=== PATIENT | female | born 1965 | race Caucasian/White ===

== ENCOUNTER 2019-04-11 09:27 | Day surgery (SDC) | payer BC, MEDICARE ==
[2019-04-08 08:50] VITALS: BMI 25.4
[~2019-04-11 09:27] MED LIST: DEXAMETHASONE SOD PHOSPHATE 10 MG/ML 1 ML VIAL IV ONE; HYDROmorphone 0.5 MG/0.5 ML SYRINGE IVP PRN; LACTATED RINGERS 1,000 ML IV SCH; LIDOCAINE 1% (10MG/ML) FOR IV START INTRADERMA PRN; ONDANSETRON 4 MG/2 ML VIAL IVP ONE; Pre Op ABX Message 1 EACH MISC MISCELLANE ONE; SCOPOLAMINE 1.5MG/72HR PATCH TRANSDERM ONE
[2019-04-11 09:55] VITALS: RESP 16; TEMP 99
[2019-04-11] MEDS ORDERED: HEPARIN SODIUM,PORCINE 5,000 UNIT/ML 1 ML VIAL SQ ONE (10:49)
--- NOTE | 2019-04-11 10:49 | P.GSHP ---
History of Present Illness H&P Date: 04/11/19 Chief Complaint: Back lipoma This a 54-year-old female who developed a back lipoma. Lipoma was located over left shoulder. Patient presents today for excision. Past Medical History Past Medical History: Fibromyalgia, GERD/Reflux, Osteoarthritis (OA) Additional Past Medical History / Comment(s): migraines,IBS,constipation,herniated disk,sciatica, had episode of hypertenion couple yrs ago-no rx, degenerative disks, History of Any Multi-Drug Resistant Organisms: None Reported Past Surgical History: Back Surgery, Tubal Ligation Additional Past Surgical History / Comment(s): spinal fusion c3-c7, Past Anesthesia/Blood Transfusion Reactions: Motion Sickness Smoking Status: Former smoker - Past Family History Sister(s) Family Medical History: Blood Disorder Medications and Allergies Home Medications Medication Instructions Recorded Confirmed Type valACYclovir HCL [Valtrex] 500 mg PO DIRECTED PRN 08/07/15 04/11/19 History ALPRAZolam [Xanax] 0.5 mg PO QID PRN 04/08/19 04/11/19 History Clindamycin HCl 300 mg PO TID 04/08/19 04/11/19 History FLUoxetine HCL [PROzac] 20 mg PO TID 04/08/19 04/11/19 History Medroxyprogesterone Acetate 10 mg PO HS 04/08/19 04/11/19 History [Provera] Morphine Sulfate ER [Ms Contin] 30 mg PO Q12HR 04/08/19 04/11/19 History Spironolactone [Aldactone] 50 mg PO HS 04/08/19 04/11/19 History Allergies Allergy/AdvReac Type Severity Reaction Status Date / Time pollen/grass/dust mites Allergy Unknown Uncoded 04/11/19 09:45 Surgical - Exam Vital Signs Temp Pulse Resp BP Pulse Ox 99.0 F 70 16 131/73 95 04/11/19 09:48 04/11/19 09:48 04/11/19 09:48 04/11/19 09:48 04/11/19 09:48 - General well developed, well nourished, no distress - Eyes PERRL - ENT normal pinna - Neck no masses - Respiratory normal expansion - Abdomen Abdomen: soft, non tender - Musculoskeletal 10 cm back lipoma located over left shoulder Assessment and Plan Plan: 10 cm left back lipoma. We'll perform excision.
[2019-04-11] MEDS ORDERED: KETAMINE 10 MG/ML 20 ML VIAL ONE (11:09)
[2019-04-11] MEDS ORDERED: MIDAZOLAM 2 MG/2 ML VIAL ONE (11:09)
[2019-04-11] MEDS ORDERED: PROPOFOL 10 MG/ML 20 ML VIAL IV ONE (11:09)
[2019-04-11] MEDS ORDERED: fentaNYL (PF) 50 MCG/ML 2 ML AMP ONE (11:09)
[2019-04-11] MEDS ORDERED: LIDOCAINE 1% INJ 10MG/ML (20 ML MDV) ONE (11:09)
[2019-04-11] MEDS ORDERED: BUPIVACAINE (PF) 0.25% 30 ML VIAL SQ ONE (11:26)
--- NOTE | 2019-04-11 11:55 | P.OP ---
Date of Procedure: 04/11/19 Preoperative Diagnosis: Left back lipoma Postoperative Diagnosis: Left back lipoma Procedure(s) Performed: Excision of left back lipoma Anesthesia: MAC Surgeon: Meño Sivler Estimated Blood Loss (ml): 5 Pathology: other (Back lipoma) Condition: stable Disposition: PACU Description of Procedure: The patient's placed on the operating table in the lateral position. She received IV sedation. Her left back was prepped and draped usual sterile fashion. The patient had a 10 cm lipoma located in the left upper back over her shoulder blade. The skin was anesthetized 1% local Xylocaine. Using a 15 blade the skin was incised. Keila cautery was used for hemostasis. The lipoma was then dissected bluntly and sharply and use of electrocautery. The lipoma was sent to pathology. Lipoma measured approximately 12 x 12 x 4 cm. The wound was incised. Skin was closed with interrupted 3-0 Monocryl suture. Dermabond was applied. Patient top she will was sent to recovery room stable condition.
[2019-04-11 12:46] VITALS: BP 100/70; PULSE 60
== END 2019-04-11 13:06 | disposition home or self-care (01) ==
LOC: OR 09:27
PROVIDERS: ATTEND Surgery
DX: D17.1 Benign lipomatous neoplasm of skin and subcutaneous tissue of trunk (principal); Z91.09 Other allergy status, other than to drugs and biological substances; M79.7 Fibromyalgia; Z79.899 Other long term (current) drug therapy; K21.9 Gastro-esophageal reflux disease without esophagitis; M19.90 Unspecified osteoarthritis, unspecified site; K58.1 Irritable bowel syndrome with constipation; I10 Essential (primary) hypertension; Z98.51 Tubal ligation status; Z98.1 Arthrodesis status; Z87.891 Personal history of nicotine dependence; Z82.49 Family history of ischemic heart disease and other diseases of the circulatory system
CPT/HCPCS: 81025; 88304; 21931; J2250; J1644; J1100; J0690; J2405; J2001; J3010; J2704

== ENCOUNTER → 2019-08-01 | Day surgery (SDC) | payer BC, MEDICARE ==
[2019-07-29 11:53] VITALS: BMI 25.2
[~2019-08-01] MED LIST changes: +ACETAMINOPHEN TAB 500 MG TAB PO ONE; +BUPIVACAIN-EPI 0.25%-1:200,000 30 ML VIAL SQ ONE; +HEPARIN SODIUM,PORCINE 5,000 UNIT/ML 1 ML VIAL SQ ONE; -HYDROmorphone 0.5 MG/0.5 ML SYRINGE IVP PRN; +LACTATED RINGERS 1,000 ML IV ONE; -LACTATED RINGERS 1,000 ML IV SCH; -LIDOCAINE 1% (10MG/ML) FOR IV START INTRADERMA PRN; +LIDOCAINE 1% INJ 10MG/ML (20 ML MDV) ONE; +MIDAZOLAM 2 MG/2 ML VIAL IV ONE; +MIDAZOLAM 2 MG/2 ML VIAL ONE; +PROPOFOL 10 MG/ML 20 ML VIAL IV ONE; -SCOPOLAMINE 1.5MG/72HR PATCH TRANSDERM ONE; +ceFAZolin 1,000 MG VIAL IVPB ONE; +fentaNYL (PF) 50 MCG/ML 2 ML AMP ONE
--- NOTE | 2019-08-01 12:47 | P.GSHP ---
History of Present Illness H&P Date: 08/01/19 Chief Complaint: Right shoulder lipoma This a 54-year-old female who presents today for excision of right shoulder lipoma. Patient has of a 5 cm lipoma located just below the right clavicle. Past Medical History Past Medical History: Fibromyalgia, GERD/Reflux, Osteoarthritis (OA) Additional Past Medical History / Comment(s): migraines,IBS,constipation,herniated disk,sciatica, had episode of hypertension couple yrs ago-no rx, degenerative disks, History of Any Multi-Drug Resistant Organisms: None Reported Past Surgical History: Back Surgery, Tubal Ligation Additional Past Surgical History / Comment(s): spinal discectomy & fusion c3-c7, lipoma removed from left back Past Anesthesia/Blood Transfusion Reactions: Motion Sickness Smoking Status: Current every day smoker - Past Family History Sister(s) Family Medical History: Blood Disorder Medications and Allergies Home Medications Medication Instructions Recorded Confirmed Type valACYclovir HCL [Valtrex] 500 mg PO DIRECTED PRN 08/07/15 07/29/19 History ALPRAZolam [Xanax] 0.5 mg PO QID PRN 04/08/19 07/29/19 History FLUoxetine HCL [PROzac] 20 mg PO TID 04/08/19 07/29/19 History Morphine Sulfate ER [Ms Contin] 30 mg PO Q12HR 04/08/19 07/29/19 History Spironolactone [Aldactone] 50 mg PO HS 04/08/19 07/29/19 History Estrogen,Con/M-Progest Acet 1 each PO DAILY 07/29/19 07/29/19 History [Prempro 0.625-2.5 mg Tablet] Allergies Allergy/AdvReac Type Severity Reaction Status Date / Time pollen/grass/dust mites Allergy Unknown Uncoded 08/01/19 09:28 Surgical - Exam Vital Signs Temp Pulse Resp BP Pulse Ox 97.1 F L 71 16 134/74 95 08/01/19 09:36 08/01/19 09:36 08/01/19 09:36 08/01/19 09:36 08/01/19 09:36 - General well developed, well nourished, no distress - Eyes PERRL - ENT normal pinna, normal nares - Neck no masses - Cardiovascular Rhythm: regular - Abdomen Abdomen: soft, non tender Assessment and Plan Plan: 5 cm right shoulder lipoma. We'll perform excision.
[2019-08-01 13:40] VITALS: TEMP 97
[2019-08-01 14:44] VITALS: BP 108/54; PULSE 62; RESP 18
--- NOTE | 2019-08-08 09:01 | P.OP ---
Date of Procedure: 08/01/19 Preoperative Diagnosis: Right shoulder lipoma Postoperative Diagnosis: Right shoulder lipoma Procedure(s) Performed: Excision of right shoulder lipoma Anesthesia: MAC Surgeon: Meño Silver Estimated Blood Loss (ml): 10 Pathology: other (Lipoma) Condition: stable Disposition: PACU Description of Procedure: The patient's placed on the operative table in the supine position. She received IV sedation her right shoulder was prepped and draped usual sterile fashion. The patient had a lipoma located just below the clavicle. A skin incision was made over the lipoma after adequate anesthesia. And then using cautery and sharp dissection the lipoma was excised. Lipoma measured prostate 5 cm in diameter. The Bovie was used for hemostasis hemostasis. Skin was closed interrupted 3-0 Monocryl suture. Dermabond was applied. Patient top she will was sent to recovery room stable condition.
== END ==
LOC: OR 08:56
PROVIDERS: ATTEND Surgery
DX: D17.21 Benign lipomatous neoplasm of skin and subcutaneous tissue of right arm (principal); M79.7 Fibromyalgia; K21.9 Gastro-esophageal reflux disease without esophagitis; M19.90 Unspecified osteoarthritis, unspecified site; G43.909 Migraine, unspecified, not intractable, without status migrainosus; K58.9 Irritable bowel syndrome, unspecified; I10 Essential (primary) hypertension; M54.5 Low back pain; F17.210 Nicotine dependence, cigarettes, uncomplicated; Z87.19 Personal history of other diseases of the digestive system; Z87.39 Personal history of other diseases of the musculoskeletal system and connective tissue; Z98.890 Other specified postprocedural states; Z98.51 Tubal ligation status; Z98.1 Arthrodesis status; Z87.2 Personal history of diseases of the skin and subcutaneous tissue; Z87.898 Personal history of other specified conditions; Z79.899 Other long term (current) drug therapy; Z79.891 Long term (current) use of opiate analgesic; Z79.890 Hormone replacement therapy; Z91.09 Other allergy status, other than to drugs and biological substances; Z83.2 Family history of diseases of the blood and blood-forming organs and certain disorders involving the immune mechanism
CPT/HCPCS: 88304; 11406; J2250; J1644; J1100; J2405; J0690; J2001; J3010; J2704

== ENCOUNTER 2019-09-29 07:57 | Day surgery (SDC) | payer BC, MEDICARE ==
[2019-09-26 14:40] VITALS: BMI 25.2
[~2019-09-29 07:57] MED LIST changes: -ACETAMINOPHEN TAB 500 MG TAB PO ONE; -BUPIVACAIN-EPI 0.25%-1:200,000 30 ML VIAL SQ ONE; -DEXAMETHASONE SOD PHOSPHATE 10 MG/ML 1 ML VIAL IV ONE; -HEPARIN SODIUM,PORCINE 5,000 UNIT/ML 1 ML VIAL SQ ONE; -LACTATED RINGERS 1,000 ML IV ONE; +LACTATED RINGERS 1,000 ML IV SCH; -LIDOCAINE 1% INJ 10MG/ML (20 ML MDV) ONE; -MIDAZOLAM 2 MG/2 ML VIAL IV ONE; -MIDAZOLAM 2 MG/2 ML VIAL ONE; -ONDANSETRON 4 MG/2 ML VIAL IVP ONE; -PROPOFOL 10 MG/ML 20 ML VIAL IV ONE; -Pre Op ABX Message 1 EACH MISC MISCELLANE ONE; -ceFAZolin 1,000 MG VIAL IVPB ONE; -fentaNYL (PF) 50 MCG/ML 2 ML AMP ONE
[2019-09-29] MEDS ORDERED: LIDOCAINE 1% INJ 10MG/ML (20 ML MDV) ONE (08:37)
[2019-09-29] MEDS ORDERED: PROPOFOL 10 MG/ML 20 ML VIAL IV ONE (08:37)
--- NOTE | 2019-09-29 08:39 | P.GSHP ---
History of Present Illness H&P Date: 09/29/19 Chief Complaint: GERD This a 54-year-old female with a safer EGD. He's had issues with GERD. Past Medical History Past Medical History: Fibromyalgia, GERD/Reflux, Hypertension, Musculoskeletal Disorder, Osteoarthritis (OA) Additional Past Medical History / Comment(s): Migraines, IBS, constipation, herniated disc, sciatica, had episode of hypertension couple yrs ago-no rx, degenerative discs. History of Any Multi-Drug Resistant Organisms: None Reported Past Surgical History: Back Surgery, Tubal Ligation Additional Past Surgical History / Comment(s): Spinal discectomy & fusion C3-C7, lipoma removed from left back and collar bone. Past Anesthesia/Blood Transfusion Reactions: Motion Sickness Past Psychological History: Anxiety, Depression, Panic Disorder Smoking Status: Current every day smoker Past Alcohol Use History: Occasional Additional Past Alcohol Use History / Comment(s): smokes 3-5 cigarettes daily, started smoking age 16, has quit before. Past Drug Use History: None Reported - Past Family History Sister(s) Family Medical History: Blood Disorder Medications and Allergies Home Medications Medication Instructions Recorded Confirmed Type valACYclovir HCL [Valtrex] 500 mg PO DIRECTED PRN 08/07/15 09/26/19 History ALPRAZolam [Xanax] 0.5 mg PO QID PRN 04/08/19 09/26/19 History FLUoxetine HCL [PROzac] 20 mg PO TID 04/08/19 09/26/19 History Morphine Sulfate ER [Ms Contin] 30 mg PO TID 04/08/19 09/26/19 History Spironolactone [Aldactone] 50 mg PO HS 04/08/19 09/26/19 History Estrogen,Con/M-Progest Acet 1 each PO DAILY 07/29/19 09/26/19 History [Prempro 0.625-2.5 mg Tablet] Allergies Allergy/AdvReac Type Severity Reaction Status Date / Time pollen/grass/dust mites Allergy Unknown Uncoded 09/26/19 14:41 Surgical - Exam - General well developed, well nourished, no distress - Eyes PERRL - ENT normal pinna - Neck no masses - Respiratory normal expansion - Cardiovascular Rhythm: regular - Abdomen Abdomen: soft, non tender Assessment and Plan Assessment: GERD. We'll perform EGD
--- NOTE | 2019-09-29 08:48 | P.OP ---
Date of Procedure: 09/29/19 Preoperative Diagnosis: GERD Postoperative Diagnosis: Antral gastritis No significant hiatal hernia Procedure(s) Performed: EGD Anesthesia: MAC Surgeon: Meño Silver Pathology: other (Antrum, esophagus) Condition: stable Disposition: PACU Description of Procedure: The patient's placed on the endoscopy table in the lateral position. She received IV sedation. The gastroscope placed oropharynx and passed into the esophagus into the stomach. Scope was then placed through the pylorus. The first and second portion of the duodenum appeared normal. Scope was then brought back the antrum this. Mildly inflamed. The scope was then retroflexed and the remainder the stomach appeared normal. There was no significant hiatal hernia. The GE junction was at 40 cm. The distal esophagus appeared minimally inflamed. A biopsies performed. The proximal esophagus appeared normal. Scope was withdrawn for patient. Due to the patient's minimal endoscopic findings a HIDA scan was ordered.
[2019-09-29 09:14] VITALS: PULSE 74; RESP 18
[2019-09-29 09:15] VITALS: BP 123/75
--- NOTE | 2019-09-29 19:21 | NM ---
EXAMINATION TYPE: NM hepatobiliary w CCK DATE OF EXAM: 09/29/2019 COMPARISON: NONE HISTORY: Abdominal pain TECHNIQUE: After the intravenous administration of 4.8 mCi Tc 99m Mebrofenin hepatobiliary scintigrap hy is performed. Immediate images post injection. FINDINGS: There is satisfactory initial accumulation of tracer by the liver. The gallbladder is visualized wit hin 15 minutes. The small bowel activity is noted within 15 minutes. At one hour CCK was administer ed, patient was injected with 1.4 mcg of Kinevac, and gallbladder ejection fraction is calculated at 77 %, in the normal range. Therefore there is no scintigraphic evidence of cystic or common bile aruna t obstruction to suggest acute cholecystitis or gallbladder dyskinesia. No focal liver defect is seen. IMPRESSION: Normal hepatobiliary scan.
== END 2019-09-29 09:27 | disposition home or self-care (01) ==
LOC: ORWHC2ENDO 07:57
PROVIDERS: ATTEND Surgery
DX: K21.0 Gastro-esophageal reflux disease with esophagitis (principal); K31.9 Disease of stomach and duodenum, unspecified; M79.7 Fibromyalgia; M19.90 Unspecified osteoarthritis, unspecified site; G43.909 Migraine, unspecified, not intractable, without status migrainosus; K58.9 Irritable bowel syndrome, unspecified; K59.00 Constipation, unspecified; M54.30 Sciatica, unspecified side; Z98.51 Tubal ligation status; Z98.1 Arthrodesis status; Z98.890 Other specified postprocedural states; F32.9 Major depressive disorder, single episode, unspecified; F41.0 Panic disorder [episodic paroxysmal anxiety]; F17.210 Nicotine dependence, cigarettes, uncomplicated; Z83.2 Family history of diseases of the blood and blood-forming organs and certain disorders involving the immune mechanism; Z79.890 Hormone replacement therapy; Z79.891 Long term (current) use of opiate analgesic; Z79.899 Other long term (current) drug therapy; Z79.3 Long term (current) use of hormonal contraceptives; Z91.048 Other nonmedicinal substance allergy status; F41.1 Generalized anxiety disorder; Z82.5 Family history of asthma and other chronic lower respiratory diseases; Z82.61 Family history of arthritis; Z81.8 Family history of other mental and behavioral disorders; Z83.49 Family history of other endocrine, nutritional and metabolic diseases; Z82.49 Family history of ischemic heart disease and other diseases of the circulatory system
CPT/HCPCS: 78227; 43239; A9537; J2805; J2001; J2704; 88305

== ENCOUNTER → 2019-10-28 | Day surgery (SDC) | payer BC, MEDICARE ==
[2019-10-25 11:49] VITALS: BMI 27.1
[~2019-10-28] MED LIST changes: +ACETAMINOPHEN TAB 500 MG TAB PO ONE; +DEXAMETHASONE SOD PHOSPHATE 10 MG/ML 1 ML VIAL IV ONE; +GLYCOPYRROLATE 0.2 MG/ML 2 ML VIAL ONE; +HEPARIN SODIUM,PORCINE 5,000 UNIT/ML 1 ML VIAL SQ ONE; +HYDROcodone/APAP 5-325MG 1 EACH TAB ONE; +HYDROmorphone 0.5 MG/0.5 ML SYRINGE IVP PRN; +KETOROLAC 15 MG/ML 1 ML VIAL ONE; +LIDOCAINE 1% (10MG/ML) FOR IV START INTRADERMA ONE; +LIDOCAINE 1% INJ 10MG/ML (20 ML MDV) ONE; +LIDOCAINE 1%-EPI 1:100,000 20 ML VIAL SQ ONE; +MIDAZOLAM 2 MG/2 ML VIAL IV PRN; +MIDAZOLAM 2 MG/2 ML VIAL ONE; +NEOSTIGMINE 1 MG/ML 10 ML VIAL ONE; +ONDANSETRON 4 MG/2 ML VIAL ONE; +PROPOFOL 10 MG/ML 20 ML VIAL IV ONE; +ROCURONIUM BROMIDE 10 MG/ML 5 ML VIAL IV ONE; +SCOPOLAMINE 1.5MG/72HR PATCH TRANSDERM ONE; +SUCCINYLCHOLINE CHLORIDE 100 MG/5 ML SYR IV ONE; +fentaNYL (PF) 50 MCG/ML 2 ML AMP ONE
--- NOTE | 2019-10-28 08:45 | P.GSHP ---
History of Present Illness H&P Date: 10/28/19 Chief Complaint: Right upper quadrant pain This is a 54-year-old female presents today for laparoscopic cholecystectomy. Patient with right upper quadrant pain. Patient describes pain when eating greasy and fried foods. She also has complaints of nausea. Patient had a re cent HIDA scan which shows elevated ejection fraction consistent with chronic cholecystitis. Past Medical History Past Medical History: Fibromyalgia, GERD/Reflux, Hypertension, Musculoskeletal Disorder, Osteoarthritis (OA) Additional Past Medical History / Comment(s): Migraines, IBS, constipation, herniated disc, sciatica, had episode of hypertension couple yrs ago-no rx, degenerative discs. History of Any Multi-Drug Resistant Organisms: None Reported Past Surgical History: Back Surgery, Tubal Ligation Additional Past Surgical History / Comment(s): Spinal discectomy & fusion C3-C7, lipoma removed from left back and collar bone. GALLBLADDER DISORDER Past Anesthesia/Blood Transfusion Reactions: Motion Sickness Smoking Status: Current every day smoker - Past Family History Sister(s) Family Medical History: Blood Disorder Medications and Allergies Home Medications Medication Instructions Recorded Confirmed Type valACYclovir HCL [Valtrex] 500 mg PO DIRECTED PRN 08/07/15 10/25/19 History ALPRAZolam [Xanax] 0.5 mg PO QID PRN 04/08/19 10/25/19 History FLUoxetine HCL [PROzac] 20 mg PO TID 04/08/19 10/25/19 History Morphine Sulfate ER [Ms Contin] 30 mg PO TID 04/08/19 10/25/19 History Spironolactone [Aldactone] 50 mg PO HS 04/08/19 10/25/19 History Medroxyprogesterone Acetate 10 mg PO DAILY 10/25/19 10/25/19 History [Provera] Ondansetron [Zofran] 4 mg PO Q8HR PRN 10/25/19 10/25/19 History Allergies Allergy/AdvReac Type Severity Reaction Status Date / Time pollen/grass/dust mites Allergy Unknown Uncoded 10/25/19 11:35 Surgical - Exam - General well developed, well nourished, no distress - Eyes PERRL - ENT normal pinna - Neck no masses - Respiratory normal expansion - Cardiovascular Rhythm: regular - Abdomen Abdomen: soft, non tender Assessment and Plan Plan: Right quadrant pain Chronic low sized We'll perform laparoscopic cholecystectomy.
[2019-10-28 08:52] VITALS: RESP 16
[2019-10-28] MEDS: ONDANSETRON 4 MG/2 ML VIAL IVP ONE ×2 (08:58→11:30)
--- NOTE | 2019-10-28 10:29 | P.OP ---
Date of Procedure: 10/28/19 Preoperative Diagnosis: Cholecystitis Postoperative Diagnosis: Cholecystitis Procedure(s) Performed: Laparoscopic cholecystectomy Anesthesia: CAIN Surgeon: Meño Silver Estimated Blood Loss (ml): 5 Pathology: other (Gallbladder) Condition: stable Disposition: PACU Description of Procedure: The patient was placed on the operating table. The patient received a general endotracheal tube anesthesia. The patients abdomen was prepped and draped in the usual sterile fashion. Through an infraumbilical stab incision, the fascia of the anterior abdominal wall was grasped with a pair of Kochers and then the Veress needle was placed in the peritoneal cavity. Position of the Veress needle was confirmed with positive drop test. The abdomen was then insufflated. After adequate insufflation, the 10 mm trocar was placed in the peritoneal cavity. Following this the laparoscope was placed in the peritoneal cavity. The patient was placed in the head-up, right side up position and then a 5 mm trocar was placed in the right lateral and right subcostal position under direct visualization. A 8 mm trocar was placed in the epigastric position. The gallbladder was grasped in the fundus and infundibulum. Traction on the gallbladder was placed in the lateral and the cephalad positions. The triangle of Calot was visualized.. The cystic duct was bluntly dissected until the union of the cystic duct and common bile duct was seen. A critical view of safety was achieved. The cystic duct was then divided and sealed with the Harmonic scissors. A PDS Endoloop was then placed throughout the cystic duct stump. The cystic artery divided and sealed with the Harmonic scissors. The gallbladder was then removed from the liver bed using Harmonic scissors. The gallbladder was then extracted through the epigastric port site. Operative field was checked for any bleeding spots and Harmonic scissors was used to coagulate the liver bed. The abdomen was irrigated. The trocars were removed. The skin was closed using interrupted 3-0 Vicryl suture. Dermabond dressing were applied. The patient tolerated the procedure well.
[2019-10-28 10:41] VITALS: TEMP 98.2
[2019-10-28 11:47] VITALS: BP 100/59; PULSE 56
== END ==
LOC: OR 08:24
PROVIDERS: ATTEND Surgery
DX: K81.1 Chronic cholecystitis (principal); K82.8 Other specified diseases of gallbladder; I10 Essential (primary) hypertension; M79.7 Fibromyalgia; G43.909 Migraine, unspecified, not intractable, without status migrainosus; K58.9 Irritable bowel syndrome, unspecified; K21.9 Gastro-esophageal reflux disease without esophagitis; F17.210 Nicotine dependence, cigarettes, uncomplicated; M19.90 Unspecified osteoarthritis, unspecified site; Z79.891 Long term (current) use of opiate analgesic; Z79.899 Other long term (current) drug therapy; Z98.51 Tubal ligation status; Z98.1 Arthrodesis status; Z98.890 Other specified postprocedural states; Z82.49 Family history of ischemic heart disease and other diseases of the circulatory system; Z91.09 Other allergy status, other than to drugs and biological substances
CPT/HCPCS: 88304; 47562; J2250; J1644; J1100; J2710; J0690; J2405; J2001; J3010; J1885; J0330; J2704

== ENCOUNTER → 2021-03-29 | Outpatient (CLI) | payer BC, MEDICARE ==
--- NOTE | 2021-03-29 12:06 | FL ---
ESOPHOGRAM. HISTORY: Dysphagia Esophagram was performed per the air contrast technique. The patient swallowed barium and effervesce nt crystals without difficulty or delay. Esophageal peristalsis and motility appear to be within normal limits. There is no evidence for filling defect, mass or diverticulum. No hiatal hernia seen. Subsequently single contrast cervical esophagram was performed which fails demonstrate evidence for a spiration penetration or mass. IMPRESSION: Unremarkable study.
== END | disposition home or self-care (01) ==
LOC: RADUSWWP 11:03
PROVIDERS: ATTEND Surgery
DX: R13.10 Dysphagia, unspecified (principal)
CPT/HCPCS: 74220

== ENCOUNTER → 2021-04-02 | Outpatient (CLI) | payer BC, MEDICARE ==
[2021-04-03 01:51] LABS: Basophils # (A) 0.07 X 10*3/uL (0.00-0.10); Basophils % (A) 0.7 %; HCT 46.8 % (37.2-46.3); HGB 14.7 g/dL (12.0-15.0); Immature Grans, Automated 0.4 %; Lymphocytes # (A) 3.79 X 10*3/uL (0.90-5.00); Lymphocytes % (A) 36.3 %; MCH 32.3 pg (27.0-32.0); MCHC 31.4 g/dL (32.0-37.0); MCV 102.9 fL (80.0-97.0); Mean Platelet Volume 11.7 fL (9.5-12.2); Monocytes # (A) 0.79 X 10*3/uL (0.20-1.00); Monocytes % (A) 7.6 %; NRBC Per 100 WBC 0 /100 WBCS (0.0-0.0); Neutrophils # (A) 5.66 X 10*3/uL (1.80-7.70); Platelet Count 315 X 10*3/uL (140-440); RBC 4.55 X 10*6/uL (4.10-5.20); RDW 13.5 % (11.5-14.5); WBC 10.45 X 10*3/uL (4.50-10.00)
== END | disposition home or self-care (01) ==
LOC: LABPAT 14:08
PROVIDERS: ATTEND Surgery
DX: Z01.812 Encounter for preprocedural laboratory examination (principal); K21.00 Gastro-esophageal reflux disease with esophagitis, without bleeding
CPT/HCPCS: 36415; 85025; 93005

== ENCOUNTER 2021-04-08 07:55 | Inpatient (IN) | payer BC, MEDICARE ==
[~2021-04-08 07:55] MED LIST changes: -ACETAMINOPHEN TAB 500 MG TAB PO ONE; +ACETAMINOPHEN TAB 500 MG TAB PO PRN; -DEXAMETHASONE SOD PHOSPHATE 10 MG/ML 1 ML VIAL IV ONE; +DEXAMETHASONE SOD PHOSPHATE 4 MG/ML 1 ML VIAL IV ONE; -GLYCOPYRROLATE 0.2 MG/ML 2 ML VIAL ONE; -HEPARIN SODIUM,PORCINE 5,000 UNIT/ML 1 ML VIAL SQ ONE; +HEPARIN SODIUM,PORCINE/PF 5,000 UNIT/0.5 ML SYRINGE SQ PRN; -HYDROcodone/APAP 5-325MG 1 EACH TAB ONE; -HYDROmorphone 0.5 MG/0.5 ML SYRINGE IVP PRN; -KETOROLAC 15 MG/ML 1 ML VIAL ONE; -LACTATED RINGERS 1,000 ML IV SCH; -LIDOCAINE 1% (10MG/ML) FOR IV START INTRADERMA ONE; +LIDOCAINE 1% (10MG/ML) FOR IV START INTRADERMA PRN; -LIDOCAINE 1% INJ 10MG/ML (20 ML MDV) ONE; -LIDOCAINE 1%-EPI 1:100,000 20 ML VIAL SQ ONE; -MIDAZOLAM 2 MG/2 ML VIAL ONE; -NEOSTIGMINE 1 MG/ML 10 ML VIAL ONE; +ONDANSETRON 4 MG/2 ML VIAL IVP ONE; -ONDANSETRON 4 MG/2 ML VIAL ONE; -PROPOFOL 10 MG/ML 20 ML VIAL IV ONE; -ROCURONIUM BROMIDE 10 MG/ML 5 ML VIAL IV ONE; -SCOPOLAMINE 1.5MG/72HR PATCH TRANSDERM ONE; -SUCCINYLCHOLINE CHLORIDE 100 MG/5 ML SYR IV ONE; -fentaNYL (PF) 50 MCG/ML 2 ML AMP ONE
[2021-04-08] MEDS ORDERED: ACETAMINOPHEN TAB 500 MG TAB ONE (08:38)
[2021-04-08] MEDS ORDERED: SCOPOLAMINE 1.5MG/72HR PATCH TRANSDERM ONE (08:43)
[2021-04-08] MEDS: LACTATED RINGERS 1,000 ML IV SCH ×2 (08:47→23:34)
[2021-04-08 08:56] LABS: ALT 15 U/L (4-34); AST 33 U/L (14-36); African American GFR (CKD) >90 (>60 ml/min/1.73 sqM); Albumin 4.3 g/dL (3.5-5.0); Alkaline Phosphatase 83 U/L (38-126); Anion Gap 7 mmol/L; Blood Urea Nitrogen 10 mg/dL (7-17); Calcium 9.4 mg/dL (8.4-10.2); Carbon Dioxide 23 mmol/L (22-30); Chloride 107 mmol/L (98-107); Glucose 112 mg/dL (74-99); Non-African American GFR(CKD) >90 (>60 ml/min/1.73 sqM); Sodium 137 mmol/L (137-145); Total Bilirubin 0.8 mg/dL (0.2-1.3); Total Protein 7.4 g/dL (6.3-8.2)
[2021-04-08 09:07] LABS: Potassium 5.4 mmol/L (3.5-5.1)
--- NOTE | 2021-04-08 09:18 | P.GSHP ---
History of Present Illness H&P Date: 04/08/21 Chief Complaint: GERD This a 56-year-old female referred from Dr. Pastor. The patient has had long- standing problems with reflux esophagitis. The patient underwent recent EGD is found have evidence of esophagitis. Patient has been well informed on the pr ocedure of laparoscopic Chadd fundoplication. The patient is aware the risk of the conversion to the open procedure, risk of injury to the stomach, liver and spleen. The patient is also a risk of recurrent GERD and dysphagia symptoms. The patient understands there is a postoperative diet of full liquids for 2 weeks after surgery. Past Medical History Past Medical History: Fibromyalgia, GERD/Reflux, Hypertension, Musculoskeletal Disorder, Osteoarthritis (OA) Additional Past Medical History / Comment(s): Migraines, IBS with constipation, herniated disc, DDD, sciatica., adult acne, hiatal hernia History of Any Multi-Drug Resistant Organisms: None Reported Past Surgical History: Back Surgery, Cholecystectomy, Tubal Ligation Additional Past Surgical History / Comment(s): Spinal discectomy & fusion C3-C7, lipoma removed from left back and collar bone. Past Anesthesia/Blood Transfusion Reactions: No Reported Reaction, Motion Sickness Past Psychological History: Anxiety, Depression, Panic Disorder Smoking Status: Current every day smoker Past Alcohol Use History: Occasional Additional Past Alcohol Use History / Comment(s): smokes 1/2 ppd, started smoking age 17., smoked off and on. Past Drug Use History: Marijuana Additional Drug Use History / Comment(s): GUMMIES - Past Family History Sister(s) Family Medical History: Blood Disorder Additional Family Medical History / Comment(s): FACTOR 5 CLOTTING DISORDER. Medications and Allergies Home Medications Medication Instructions Recorded Confirmed Type FLUoxetine HCL [PROzac] 20 mg PO TID 04/08/19 04/08/21 History Aldactone (Unknown Dose) 1 tab PO DAILY 04/04/21 04/08/21 History Antibiotic For Ear Infection 1 tab PO DIRECTED 04/04/21 04/08/21 History Cbd Gummies 1 dose PO HS PRN 04/04/21 04/08/21 History HYDROcodone/APAP 10-325MG [Lyndon 1 tab PO DIRECTED PRN 04/04/21 04/08/21 History 10-325] L.acidoph,Paracasei, B.lactis 1 each PO DAILY 04/04/21 04/08/21 History [Probiotic] Morphine Sulfate [Radha] 20 mg PO TID 04/04/21 04/08/21 History Omeprazole Magnesium [PriLOSEC OTC] 40 mg PO DAILY 04/04/21 04/08/21 History Xanax (Unknown Dose) 1 tab PO DIRECTED PRN 04/04/21 04/08/21 History Allergies Allergy/AdvReac Type Severity Reaction Status Date / Time pollen/grass/dust mites Allergy allergy Uncoded 04/04/21 15:34 symptoms Surgical - Exam Vital Signs Temp Pulse Resp BP Pulse Ox 97.6 F 73 16 107/63 97 04/08/21 08:21 04/08/21 08:21 04/08/21 08:21 04/08/21 08:21 04/08/21 08:21 - General well developed, well nourished, no distress - Eyes PERRL - ENT normal pinna - Neck no masses - Respiratory normal expansion - Cardiovascular Rhythm: regular - Abdomen Abdomen: soft, non tender Results - Labs 04/08/21 08:34 Abnormal Lab Results - Last 24 Hours (Table) 04/08/21 Range/Units 08:34 Potassium 5.4 H (3.5-5.1) mmol/L Glucose 112 H (74-99) mg/dL Diabetes panel 04/08/21 Range/Units 08:34 Sodium 137 (137-145) mmol/L Potassium 5.4 H (3.5-5.1) mmol/L Chloride 107 (98-107) mmol/L Carbon Dioxide 23 (22-30) mmol/L BUN 10 (7-17) mg/dL Creatinine 0.74 (0.52-1.04) mg/dL Glucose 112 H (74-99) mg/dL Calcium 9.4 (8.4-10.2) mg/dL AST 33 (14-36) U/L ALT 15 (4-34) U/L Alkaline Phosphatase 83 (38-126) U/L Total Protein 7.4 (6.3-8.2) g/dL Albumin 4.3 (3.5-5.0) g/dL Calcium panel 04/08/21 Range/Units 08:34 Calcium 9.4 (8.4-10.2) mg/dL Albumin 4.3 (3.5-5.0) g/dL Pituitary panel 04/08/21 Range/Units 08:34 Sodium 137 (137-145) mmol/L Potassium 5.4 H (3.5-5.1) mmol/L Chloride 107 (98-107) mmol/L Carbon Dioxide 23 (22-30) mmol/L BUN 10 (7-17) mg/dL Creatinine 0.74 (0.52-1.04) mg/dL Glucose 112 H (74-99) mg/dL Calcium 9.4 (8.4-10.2) mg/dL Adrenal panel 04/08/21 Range/Units 08:34 Sodium 137 (137-145) mmol/L Potassium 5.4 H (3.5-5.1) mmol/L Chloride 107 (98-107) mmol/L Carbon Dioxide 23 (22-30) mmol/L BUN 10 (7-17) mg/dL Creatinine 0.74 (0.52-1.04) mg/dL Glucose 112 H (74-99) mg/dL Calcium 9.4 (8.4-10.2) mg/dL Total Bilirubin 0.8 (0.2-1.3) mg/dL AST 33 (14-36) U/L ALT 15 (4-34) U/L Alkaline Phosphatase 83 (38-126) U/L Total Protein 7.4 (6.3-8.2) g/dL Albumin 4.3 (3.5-5.0) g/dL Assessment and Plan Assessment: GERD. We'll perform laparoscopic Chadd fundoplication.
[2021-04-08] MEDS ORDERED: MIDAZOLAM 2 MG/2 ML VIAL IV ONE (09:36)
[2021-04-08] MEDS ORDERED: fentaNYL (PF) 50 MCG/ML 2 ML AMP ONE (10:26)
[2021-04-08] MEDS ORDERED: MIDAZOLAM 2 MG/2 ML VIAL ONE (10:26)
[2021-04-08] MEDS ORDERED: LIDOCAINE 1% INJ 10MG/ML (20 ML MDV) ONE (10:26)
[2021-04-08] MEDS ORDERED: KETAMINE 10 MG/ML 20 ML VIAL ONE (10:26)
[2021-04-08] MEDS ORDERED: SUCCINYLCHOLINE CHLORIDE 100 MG/5 ML SYR IV ONE (10:26)
[2021-04-08] MEDS ORDERED: PROPOFOL 10 MG/ML 20 ML VIAL IV ONE (10:26)
[2021-04-08] MEDS ORDERED: HYDROmorphone (PF) 1 MG/ML ONE (10:26)
[2021-04-08] MEDS ORDERED: NEOSTIGMINE 1 MG/ML 10 ML VIAL ONE (10:26)
[2021-04-08] MEDS ORDERED: GLYCOPYRROLATE 0.2 MG/ML 2 ML VIAL ONE (10:26)
[2021-04-08] MEDS ORDERED: ROCURONIUM 10 MG/ML (5 ML VIAL) IV ONE (10:26)
[2021-04-08] MEDS ORDERED: BUPIVACAINE (PF) 0.25% 30 ML VIAL SQ ONE (11:07)
[2021-04-08] MEDS ORDERED: LACTATED RINGERS 1,000 ML IV ONE (11:18)
[2021-04-08] MEDS ORDERED: ONDANSETRON 4 MG/2 ML VIAL IVP PRN (11:40)
--- NOTE | 2021-04-08 11:40 | P.OP ---
Date of Procedure: 04/08/21 Preoperative Diagnosis: GERD Postoperative Diagnosis: GERD Procedure(s) Performed: Laparoscopic Chadd fundal plication Anesthesia: CAIN Surgeon: Meño Silver Estimated Blood Loss (ml): 5 Pathology: none sent Condition: stable Disposition: PACU Description of Procedure: HThe patient was placed on the operating table in the supine position. The patient received general anesthesia. And was placed in dorsal lithotomy position. The patient was prepped and draped in the usual sterile fashion. The skin incision sites were anesthetized with 1% local Xylocaine. The skin was incised in the left periumbilical area and then using a blade less 5 mm trocar under direct visualization panel cavity was entered. After adequate insufflation the laparoscope was then placed into the peritoneal cavity. Next a 5 mm trochars placed in the right epigastric position. Another 5 millimeter trocar the right lateral position. Another 5 millimeter trocar in the left lateral position a 5 mm trocar is placed in the left epigastric position. And then the initial 5 mm trocar was exchanged for a 10 mm trocar. The left lateral lobe liver was retracted. The hernia was seen. The crural defect was then dissected using the Harmonic scissors device. A 360 crural dissection was performed the esophagus stomach was reduced back into the peritoneal Cavity. The crural defect was then closed using 2-0 Ethibond suture. Next the fundus of the stomach was mobilized using the [place] scissors device. and then a 58- Malagasy bougie dilator was placed oropharynx passed into the esophagus and stomach the fundal plication wrap was then performed by grasping the fundus post eriorly and bringing it around the esophagus and stomach fundoplication was then performed using 2-0 Ethibond suture. Care was taken that the fundal location rested over top of the intra-abdominal esophagus. There was no injury seen to the stomach or esophagus. The dilator was then withdrawn. The abdomen was irrigated there is no bleeding seen. The trochars were then withdrawn and then skin incision sites were closed using 3-0 Monocryl suture Steri-Strips are applied. Patient thought procedure well and sent to recovery room in stable condition.
[2021-04-08] MEDS ORDERED: diphenhydrAMINE 50 MG/ML 1 ML VIAL IVP ONE (11:52)
[2021-04-08] MEDS ORDERED: MEPERIDINE 50 MG/ML SYRINGE IVP ONE ×2 (12:05→12:25)
[2021-04-08] MEDS ORDERED: SIMETHICONE 40 MG/0.6 ML DROPS 2,000 MG/30 ML BOTTLE PO ONE (12:31)
[2021-04-08] MEDS: HYDROmorphone 0.5 MG/0.5 ML SYRINGE IVP PRN ×4 (13:17→16:25)
[2021-04-08] MEDS ORDERED: HYDROcodone/APAP 10-325MG 1 EACH TAB PO PRN (18:58)
[2021-04-08] MEDS: MORPHINE SULFATE ER 30 MG TABLET PO SCH (21:06)
[2021-04-08] MEDS: D5-0.45% NACL WITH KCL 20MEQ/L 1,000 ML IV SCH (22:07)
[2021-04-09] MEDS: D5-0.45% NACL WITH KCL 20MEQ/L 1,000 ML IV SCH (05:42)
[2021-04-09] MEDS ORDERED: PANTOPRAZOLE 40 MG TABLET PO SCH (07:30)
[2021-04-09] MEDS ORDERED: DEXTROSE 5%-0.45% NACL 1,000 ML IV SCH (08:00)
--- NOTE | 2021-04-09 08:33 | P.CONS ---
History of Present Illness - Reason for Consult Consult date: 04/09/21 Medical management Requesting physician: Meño Silver - Chief Complaint Acid reflux - History of Present Illness This is a 56-year-old white female with reflux esophagitis. Status post Chadd fundoplication. 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 The patient is seen postoperatively tolerating clears. No voiding difficulties. Passing gas. She complains of postop shoulder pain related to surgery. Review of Systems All systems: negative Past Medical History Past Medical History: Fibromyalgia, GERD/Reflux, Hypertension, Musculoskeletal Disorder, Osteoarthritis (OA) Additional Past Medical History / Comment(s): Migraines, IBS with constipation, herniated disc, DDD, sciatica., adult acne, hiatal hernia History of Any Multi-Drug Resistant Organisms: None Reported Past Surgical History: Back Surgery, Cholecystectomy, Tubal Ligation Additional Past Surgical History / Comment(s): Spinal discectomy & fusion C3-C7, lipoma removed from left back and collar bone. Past Anesthesia/Blood Transfusion Reactions: No Reported Reaction, Motion Sickness Past Psychological History: Anxiety, Depression, Panic Disorder Smoking Status: Current every day smoker Past Alcohol Use History: Occasional Additional Past Alcohol Use History / Comment(s): smokes 1/2 ppd, started smoking age 17., smoked off and on. Past Drug Use History: Marijuana Additional Drug Use History / Comment(s): GUMMIES - Past Family History Sister(s) Family Medical History: Blood Disorder Additional Family Medical History / Comment(s): FACTOR 5 CLOTTING DISORDER. Medications and Allergies Home Medications Medication Instructions Recorded Confirmed Type FLUoxetine HCL [PROzac] 20 mg PO TID 04/08/19 04/08/21 History Aldactone (Unknown Dose) 1 tab PO DAILY 04/04/21 04/08/21 History Antibiotic For Ear Infection 1 tab PO DIRECTED 04/04/21 04/08/21 History Cbd Gummies 1 dose PO HS PRN 04/04/21 04/08/21 History HYDROcodone/APAP 10-325MG [[place] 1 tab PO DIRECTED PRN 04/04/21 04/08/21 History 10-325] L.acidoph,Paracasei, B.lactis 1 each PO DAILY 04/04/21 04/08/21 History [Probiotic] Morphine Sulfate [Radha] 20 mg PO TID 04/04/21 History Omeprazole Magnesium [PriLOSEC OTC] 40 mg PO DAILY 04/04/21 04/08/21 History Xanax (Unknown Dose) 1 mg PO DIRECTED PRN 04/04/21 04/08/21 History Morphine Sulfate ER [Ms Contin] 30 mg PO Q8H 04/08/21 04/08/21 History Allergies Allergy/AdvReac Type Severity Reaction Status Date / Time pollen/grass/dust mites Allergy allergy Uncoded 04/04/21 15:34 symptoms Physical Exam Vitals: Vital Signs Temp Pulse Pulse Resp BP Pulse Ox 04/09/21 05:00 98.4 F 69 16 93/58 91 L 04/08/21 19:42 98.7 F 77 16 122/75 91 L 04/08/21 19:39 77 16 04/08/21 17:33 98.6 F 84 24 136/81 94 L 04/08/21 15:00 69 16 137/59 96 04/08/21 14:30 65 127/69 04/08/21 14:00 65 16 113/58 95 04/08/21 13:30 63 16 101/59 96 04/08/21 13:00 63 16 134/59 95 04/08/21 12:35 68 16 128/75 97 04/08/21 12:20 61 16 138/62 98 04/08/21 12:05 62 16 127/68 97 04/08/21 11:55 68 16 118/68 97 04/08/21 11:42 96.8 F L 73 16 135/68 98 04/08/21 09:39 64 16 95 Intake and Output 04/08/21 04/09/21 04/09/21 22:59 06:59 14:59 Intake Total 400 1125 Output Total 600 Balance -200 1125 Intake: IV 400 Intake, IV Titration 1125 Amount D5-0.45% NaCl with KCl 1125 20Meq/l 1,000 ml @ 125 mls/hr IV .Q8H MOHINDER Rx#: [id number] Output: Urine 600 Other: Voiding Method Toilet # Voids 1 - Constitutional General appearance: no acute distress - EENT Eyes: EOMI - Neck Neck: no lymphadenopathy - Respiratory Respiratory: bilateral: CTA - Cardiovascular Rhythm: regular Heart sounds: normal: S1, S2 Abnormal Heart Sounds: no S3 Gallop - Gastrointestinal General gastrointestinal: soft, no tenderness - Integumentary Integumentary: no cellulitis - Psychiatric Psychiatric: A&O x's 3 Results CBC & Chem 7: 04/08/21 08:34 Labs: Abnormal Lab Results - Last 24 Hours (Table) 04/08/21 Range/Units 08:34 Potassium 5.4 H (3.5-5.1) mmol/L Glucose 112 H (74-99) mg/dL Assessment and Plan (1) GERD (gastroesophageal reflux disease) Current Visit: Yes Status: Acute Code(s): K21.9 - GASTRO-ESOPHAGEAL REFLUX DISEASE WITHOUT ESOPHAGITIS SNOMED Code(s): 487708759 (2) Status post Chadd fundoplication Current Visit: Yes Status: Acute Code(s): Z98.890 - OTHER SPECIFIED POSTPROCEDURAL STATES SNOMED Code(s): 976720606 Plan: Reconcile medications. Appropriate pain control-restart her home meds. The patient is tolerating clear liquids. Anticipate discharge once cleared by surgery today as she passes her normal postop protocol.
[2021-04-09] MEDS ORDERED: LACTOBACILLUS ACIDOPH & BULGAR 1 EACH PACKET PO SCH (09:00)
[2021-04-09] MEDS: MORPHINE SULFATE ER 30 MG TABLET PO SCH (11:42)
[2021-04-09 11:43] VITALS: BP 134/80; PULSE 55; RESP 18; TEMP 97.5
[2021-04-09 12:23] LABS: African American GFR (CKD) >90 (>60 ml/min/1.73 sqM); Anion Gap 5 mmol/L; Blood Urea Nitrogen 7 mg/dL (7-17); Calcium 8.9 mg/dL (8.4-10.2); Carbon Dioxide 29 mmol/L (22-30); Chloride 102 mmol/L (98-107); Glucose 118 mg/dL (74-99); Non-African American GFR(CKD) >90 (>60 ml/min/1.73 sqM); Sodium 136 mmol/L (137-145)
--- NOTE | 2021-04-09 12:25 | FL ---
EXAMINATION TYPE: FL esophagus cervic/pharynx DATE OF EXAM: 04/09/2021 LIMITED UGI-ESOPHAGRAM: CLINICAL HISTORY: Post Chadd fundoplication TECHNIQUE: Limited esophagram is performed utilizing 50 mL of Isovue 370. A total of 2 minutes and 5 1 seconds of fluoroscopic time was utilized during procedure. FINDINGS: Small amount of free air under the diaphragm, expected postsurgically. The patient swallowed contrast without difficulty. Slow flow of contrast along the diaphragmatic hiatus into the stomach with moderate delay of passage of contrast from the esophagus into the stomach. This is suggestive of moderate partial obstruction a nd probably due to postoperative edema. There is no evidence of contrast extravasation to suggest leak. No persistent hiatal hernia is seen. Patient remains asymptomatic. IMPRESSION: Moderate delay of passage of contrast from the esophagus into the stomach as described above. This is probably related to postoperative edema. No evidence of complete obstruction or leak.
[2021-04-09] MEDS ORDERED: DEXAMETHASONE SOD PHOSPHATE 4 MG/ML 1 ML VIAL IVP SCH (13:00)
--- NOTE | 2021-04-09 13:30 | P.DS ---
Providers Date of admission: 04/08/21 07:55 Expected date of discharge: 04/09/21 Attending physician: Meño Farley Consults: 04/08/21 11:40 Consult Physician Routine Consulting Provider: Julius Pastor Consult Reason/Comments: Medical management Do you want consulting provider notified?: Yes Primary care physician: Julius aPstor Hospital Course: Discharge diagnosis 1. GERD status post laparoscopic Chadd fundoplication 2. Hyperkalemia resolved Hospital course This is a 56-year-old female with a known history of GERD and evidence of reflux esophagitis. She is status post laparoscopic Chadd fundoplication. She tolerated surgery well. Her pain is controlled. She is tolerating Chadd clear liquid diet. Upper GI shows moderate delay of passage of contrast from the eso phagus into the stomach. This is probably related to postoperative edema. No evidence of obstruction or leak. Patient received 1 dose of Decadron. Upper GI results discussed with Dr. farley. He has cleared her for discharge. Patient is afebrile. She is up and ambulating. Her pain is controlled. She is stable for discharge. Please refer to chart for any further details. Physician Air Conditioning Manager note has been reviewed by physician. Signing provider agrees with the documented findings, assessment, and plan of care. Patient Condition at Discharge: Stable Plan - Discharge Summary Discharge Rx Participant: Yes New Discharge Prescriptions: Continue FLUoxetine HCL [PROzac] 20 mg PO TID HYDROcodone/APAP 10-325MG [[place] 10-325] 1 tab PO DIRECTED PRN PRN Reason: Pain Aldactone (Unknown Dose) 1 tab PO DAILY Morphine Sulfate ER [Ms Contin] 30 mg PO Q8H Xanax (Unknown Dose) 1 mg PO DIRECTED PRN PRN Reason: Pain Omeprazole Magnesium [PriLOSEC OTC] 40 mg PO DAILY L.acidoph,Paracasei, B.lactis [Probiotic] 1 each PO DAILY Discontinued Morphine Sulfate [Radha] 20 mg PO TID Antibiotic For Ear Infection 1 tab PO DIRECTED No Action Cbd Gummies 1 dose PO HS PRN PRN Reason: Insomnia Discharge Medication List FLUoxetine HCL [PROzac] 20 mg PO TID 04/08/19 [History] Aldactone (Unknown Dose) 1 tab PO DAILY 04/04/21 [History] Cbd Gummies 1 dose PO HS PRN 04/04/21 [History] HYDROcodone/APAP 10-325MG [[place] 10-325] 1 tab PO DIRECTED PRN 04/04/21 [History] L.acidoph,Paracasei, B.lactis [Probiotic] 1 each PO DAILY 04/04/21 [History] Omeprazole Magnesium [PriLOSEC OTC] 40 mg PO DAILY 04/04/21 [History] Xanax (Unknown Dose) 1 mg PO DIRECTED PRN 04/04/21 [History] Morphine Sulfate ER [Ms Contin] 30 mg PO Q8H 04/08/21 [History] Follow up Appointment(s)/Referral(s): Meño Farley MD [STAFF PHYSICIAN] - 1 Week Julius Pastor MD [Primary Care Provider] - 3 Days Patient Instructions/Handouts: *Surgery [facility] - Scopalamine Patch Instructions Activity/Diet/Wound Care/Special Instructions: Continue narcotics as prescribed by her physician who takes care of her pain medications No driving while taking narcotics. No lifting over 10 pounds You may shower. No soaking or tub baths for 2 weeks Very light activity until you are reevaluated at your follow up appointment with your surgeon No straws or carbonated beverages Continue a soft diet for 2 weeks Discharge Disposition: HOME SELF-CARE
[2021-04-09 14:56] VITALS: BMI 28.3
== END 2021-04-09 14:25 | disposition home or self-care (01) | DRG 327 ==
LOC: 2ORMAIN 07:55 → 5NMEDONC 16:53
PROVIDERS: ADMIT Surgery; ATTEND Surgery
PROC: 0DV44ZZ Restriction of Esophagogastric Junction, Percutaneous Endoscopic Approach (ICD-10-PCS; principal; 2021-04-08 08:55)
DX: K21.00 Gastro-esophageal reflux disease with esophagitis, without bleeding (principal); F11.20 Opioid dependence, uncomplicated; E87.5 Hyperkalemia; F17.200 Nicotine dependence, unspecified, uncomplicated; F32.A Depression, unspecified; F41.0 Panic disorder [episodic paroxysmal anxiety]; H66.90 Otitis media, unspecified, unspecified ear; I10 Essential (primary) hypertension; M79.7 Fibromyalgia; Z83.2 Family history of diseases of the blood and blood-forming organs and certain disorders involving the immune mechanism
CPT/HCPCS: 74210; 80048; 80053